=== PATIENT | male | born 1985 | race Caucasian/White ===

== ENCOUNTER 2018-07-19 17:01 | Emergency (ER) | payer SELFPAY ==
[~2018-07-19] VITALS: Ht 180.3 cm; Wt 81.2 kg
--- NOTE | 2018-07-19 17:17 | NUR ---
BIB90, FROM A HOTEL, ALTERED, PT ADMITS ON TAKING HEROIN. NO ACUTE DISTRESS NOTED AND NO COMPLAINTS AT THIS TIME. TO ER BED 12, HOOKED TO MONITOR AND MADE COMFORTABLE. READY FOR EVAL.
--- NOTE | 2018-07-19 19:30 | NUR ---
PT ASLEEP IN BED. NO COMPLAINTS AT THIS TIME. VSS. WILL CONT TO MONITOR.
--- NOTE | 2018-07-19 21:52 | NUR ---
PRODUCTION SUPV MARSII AT BEDSIDE
--- NOTE | 2018-07-19 22:02 | NUR ---
PROVIDED PT WITH JUICE AND CRACKERS
--- NOTE | 2018-07-19 22:30 | NUR ---
Patient discharged to home in stable condition. Written and verbal after care instructions given. Patient verbalizes understanding of instruction.
[2018-07-19 22:51] VITALS: BP 122/72
== END 2018-07-19 22:30 | disposition home or self-care (01) ==
LOC: ER 17:10
DX: F11.10 Opioid abuse, uncomplicated (principal)